=== PATIENT | female | born 1955 | race Caucasian/White ===

== ENCOUNTER 2017-04-29 10:30 | Inpatient (IN) | payer MEDICAID ==
[~2017-04-29] VITALS: Ht 167.6 cm; Wt 133.4 kg
[2017-04-29] MEDS ORDERED: SODIUM CHLORIDE 0.9% 1,000 ML IV ONE (11:01)
[2017-04-29] MEDS ORDERED: GABA300C PO (11:08)
[2017-04-29] MEDS ORDERED: LISI-167 PO (11:08)
[2017-04-29] MEDS ORDERED: FLUT10.6 INH (11:08)
[2017-04-29] MEDS ORDERED: FURO-93 PO (11:08)
[2017-04-29] MEDS ORDERED: ALBUTEROL/IPRATROPIUM 2.5MG/0.5MG, 3 ML NPPB SCH (11:30)
[2017-04-29 11:42] LABS: HEMATOCRIT 40.8 % (34.6-47.8); HEMOGLOBIN 13.1 g/dL (11.7-16.4); WHITE BLOOD COUNT 9.5 x10^3/uL (3.4-10)
[2017-04-29 11:55] LABS: BLOOD UREA NITROGEN 8 mg/dL (7-18)
[2017-04-29 11:58] LABS: IS PT STATUS REG ER OR PRE ER? YES
[2017-04-29] MEDS ORDERED: NITROGLYCERIN OINT 2%, 1GM TP ONE ×2 (13:00→13:02)
[2017-04-29] MEDS ORDERED: FUROSEMIDE 40 MG/4 ML IVPush ONE (13:00)
[2017-04-29] MEDS ORDERED: FUROSEMIDE 40 MG/4 ML ONE (13:02)
[2017-04-29] MEDS ORDERED: POTASSIUM CHLORIDE 20 MEQ TAB.ER.PRT ONE (14:19)
[2017-04-29 14:28] VITALS: BP 152/74
[2017-04-29] MEDS ORDERED: POTASSIUM CHLORIDE 20 MEQ TAB.ER.PRT PO ONE (14:30)
[2017-04-29] MEDS ORDERED: METH500T97 PO (15:44)
[2017-04-29] MEDS ORDERED: LISI1TAB3 PO (15:44)
[2017-04-29] MEDS ORDERED: IPRA4AER INH (15:44)
[2017-04-29] MEDS ORDERED: FLUT12AE INH (15:44)
[2017-04-29] MEDS ORDERED: ALBU6.7H INH (15:44)
[2017-04-29] MEDS ORDERED: ONDANSETRON ODT 4 MG PO PRN (16:00)
[2017-04-29] MEDS ORDERED: PNEUMOCOCCAL 23 VACCINE IM-VACC ONE (16:00)
[2017-04-29] MEDS ORDERED: ONDANSETRON 2MG/ML, 2ML IVPush PRN (16:00)
[2017-04-29] MEDS ORDERED: POLYETHYLENE GLYCOL 17 GM PACKET PO PRN (16:00)
[2017-04-29] MEDS ORDERED: ACETAMINOPHEN 325 MG TABLET PO PRN (16:00)
[2017-04-29] MEDS ORDERED: DOCUSATE 100 MG CAPSULE PO PRN (16:00)
[2017-04-29] MEDS ORDERED: LABETALOL 5MG/ML, 20ML IVPush PRN (16:00)
[2017-04-29] MEDS ORDERED: BISACODYL 10 MG SUPP PR PRN (16:00)
[2017-04-29] MEDS: ENOXAPARIN 40 MG/0.4 ML SQ SCH (16:53)
[2017-04-29] MEDS ORDERED: ALBUTEROL/IPRATROPIUM 2.5MG/0.5MG, 3 ML NPPB PRN (17:30)
[2017-04-29] MEDS: ALBUTEROL/IPRATROPIUM 2.5MG/0.5MG, 3 ML NPPB SCH (17:43)
[2017-04-29] MEDS: GABAPENTIN 300 MG CAPSULE PO SCH ×2 (17:52→21:24)
[2017-04-29] MEDS: methylPREDNISolone SOD SUCC 125 MG/2 ML IVPush SCH (18:20)
[2017-04-29 21:19] VITALS: BP 148/87
[2017-04-29] MEDS: METHOCARBAMOL 500 MG TABLET PO SCH (21:24)
[2017-04-30 00:46] VITALS: BP 141/80
[2017-04-30] MEDS: methylPREDNISolone SOD SUCC 125 MG/2 ML IVPush SCH ×4 (00:49→17:09)
[2017-04-30 05:02] LABS: HEMATOCRIT 43.6 % (34.6-47.8); HEMOGLOBIN 14.1 g/dL (11.7-16.4); WHITE BLOOD COUNT 7.8 x10^3/uL (3.4-10)
[2017-04-30 05:13] LABS: ASPARTATE AMINO TRANSFERASE 23 U/L (15-37); BLOOD UREA NITROGEN 14 mg/dL (7-18)
[2017-04-30] MEDS: ALBUTEROL/IPRATROPIUM 2.5MG/0.5MG, 3 ML NPPB SCH ×4 (05:14→20:00)
[2017-04-30 09:02] VITALS: BP 132/83
[2017-04-30] MEDS: GABAPENTIN 300 MG CAPSULE PO SCH ×3 (09:30→21:49)
[2017-04-30] MEDS: METHOCARBAMOL 500 MG TABLET PO SCH ×2 (09:30→21:49)
[2017-04-30] MEDS: FUROSEMIDE 40 MG/4 ML IV SCH (09:31)
[2017-04-30] MEDS: DOXYCYCLINE 100MG TABLET PO SCH ×2 (09:37→21:49)
[2017-04-30] MEDS ORDERED: ALBUTEROL/IPRATROPIUM 2.5MG/0.5MG, 3 ML ONE ×2 (10:05→13:19)
[2017-04-30 13:37] VITALS: BP 150/83
[2017-04-30] MEDS: ENOXAPARIN 40 MG/0.4 ML SQ SCH (17:08)
[2017-04-30 18:50] VITALS: BP 115/70
[2017-05-01] MEDS: methylPREDNISolone SOD SUCC 125 MG/2 ML IVPush SCH ×2 (00:22→06:20)
[2017-05-01] MEDS: morphine SULFATE 10 MG/ML, 1ML IVPush PRN (00:30)
[2017-05-01 00:41] VITALS: BP 132/77
[2017-05-01 06:39] VITALS: BP 144/83
[2017-05-01] MEDS: ALBUTEROL/IPRATROPIUM 2.5MG/0.5MG, 3 ML NPPB SCH ×4 (07:00→20:00)
[2017-05-01] MEDS: GABAPENTIN 300 MG CAPSULE PO SCH ×3 (09:35→20:42)
[2017-05-01] MEDS: DOXYCYCLINE 100MG TABLET PO SCH ×2 (09:35→20:42)
[2017-05-01] MEDS: METHOCARBAMOL 500 MG TABLET PO SCH ×2 (09:35→20:42)
[2017-05-01] MEDS: FUROSEMIDE 40 MG/4 ML IV SCH (09:35)
[2017-05-01 11:47] VITALS: BP 140/84
[2017-05-01] MEDS: LISINOPRIL 10 MG TABLET PO SCH (11:49)
[2017-05-01] MEDS: HYDROCHLOROTHIAZIDE 12.5 MG CAPSULE PO SCH (11:49)
[2017-05-01] MEDS: GUAIFENESIN ER 600 MG TABLET PO SCH ×2 (11:49→21:00)
[2017-05-01 14:44] VITALS: BP 132/71
[2017-05-01] MEDS: ENOXAPARIN 40 MG/0.4 ML SQ SCH (16:13)
[2017-05-01 20:00] VITALS: BP 126/70
[2017-05-02] MEDS: DIPHENHYDRAMINE 25 MG CAPSULE PO PRN ×2 (00:21→21:31)
[2017-05-02 02:00] VITALS: BP 146/80
[2017-05-02] MEDS ORDERED: ALBUTEROL/IPRATROPIUM 2.5MG/0.5MG, 3 ML ONE ×2 (06:35→10:28)
[2017-05-02] MEDS: ALBUTEROL/IPRATROPIUM 2.5MG/0.5MG, 3 ML NPPB SCH ×4 (07:19→20:00)
[2017-05-02 08:07] VITALS: BP 144/83
[2017-05-02] MEDS: GABAPENTIN 300 MG CAPSULE PO SCH ×3 (08:46→20:16)
[2017-05-02] MEDS: LISINOPRIL 10 MG TABLET PO SCH (08:46)
[2017-05-02] MEDS: GUAIFENESIN ER 600 MG TABLET PO SCH ×2 (08:46→20:16)
[2017-05-02] MEDS: METHOCARBAMOL 500 MG TABLET PO SCH ×2 (08:46→20:16)
[2017-05-02] MEDS: DOXYCYCLINE 100MG TABLET PO SCH ×2 (08:46→20:16)
[2017-05-02] MEDS: HYDROCHLOROTHIAZIDE 12.5 MG CAPSULE PO SCH (08:47)
[2017-05-02 15:12] VITALS: BP 151/91
[2017-05-02] MEDS: ENOXAPARIN 40 MG/0.4 ML SQ SCH ×2 (16:00→16:51)
[2017-05-02 20:13] VITALS: BP 153/97
[2017-05-03 02:45] VITALS: BP 146/84
[2017-05-03 06:27] LABS: HEMATOCRIT 46.1 % (34.6-47.8); HEMOGLOBIN 14.7 g/dL (11.7-16.4); WHITE BLOOD COUNT 8.5 x10^3/uL (3.4-10)
[2017-05-03 07:23] VITALS: BP 142/80
[2017-05-03] MEDS: ALBUTEROL/IPRATROPIUM 2.5MG/0.5MG, 3 ML NPPB SCH ×4 (08:28→20:00)
[2017-05-03] MEDS: LISINOPRIL 10 MG TABLET PO SCH (09:47)
[2017-05-03] MEDS: DOXYCYCLINE 100MG TABLET PO SCH ×2 (09:47→20:46)
[2017-05-03] MEDS: METHOCARBAMOL 500 MG TABLET PO SCH ×2 (09:47→20:46)
[2017-05-03] MEDS: GUAIFENESIN ER 600 MG TABLET PO SCH ×2 (09:48→20:46)
[2017-05-03] MEDS: HYDROCHLOROTHIAZIDE 12.5 MG CAPSULE PO SCH (09:48)
[2017-05-03] MEDS: GABAPENTIN 300 MG CAPSULE PO SCH ×3 (09:48→20:46)
[2017-05-03] MEDS: NICOTINE 14MG/24 HR PATCH.TD24 TD SCH (09:49)
[2017-05-03] MEDS ORDERED: maalox/diphenh/lido/sucralfate 5 ML PO PRN (11:00)
[2017-05-03 13:16] VITALS: BP 146/81
[2017-05-03] MEDS: ENOXAPARIN 40 MG/0.4 ML SQ SCH ×3 (15:16→16:00)
[2017-05-03] MEDS: morphine SULFATE 10 MG/ML, 1ML IVPush PRN (17:16)
[2017-05-03 19:10] VITALS: BP 135/80
[2017-05-04] MEDS: DIPHENHYDRAMINE 25 MG CAPSULE PO PRN (00:42)
[2017-05-04 02:00] VITALS: BP 139/76
[2017-05-04] MEDS: morphine SULFATE 10 MG/ML, 1ML IVPush PRN ×3 (04:00→20:24)
[2017-05-04] MEDS: ALBUTEROL/IPRATROPIUM 2.5MG/0.5MG, 3 ML NPPB SCH ×4 (07:03→19:40)
[2017-05-04 07:56] VITALS: BP 134/80
[2017-05-04] MEDS: GUAIFENESIN ER 600 MG TABLET PO SCH ×2 (08:38→20:25)
[2017-05-04] MEDS: DOXYCYCLINE 100MG TABLET PO SCH ×2 (08:39→20:25)
[2017-05-04] MEDS: METHOCARBAMOL 500 MG TABLET PO SCH ×2 (08:39→20:25)
[2017-05-04] MEDS: HYDROCHLOROTHIAZIDE 12.5 MG CAPSULE PO SCH (08:39)
[2017-05-04] MEDS: LISINOPRIL 10 MG TABLET PO SCH (08:39)
[2017-05-04] MEDS: GABAPENTIN 300 MG CAPSULE PO SCH ×3 (08:39→20:25)
[2017-05-04] MEDS: NICOTINE 14MG/24 HR PATCH.TD24 TD SCH (08:40)
[2017-05-04 12:25] VITALS: BP 158/106
[2017-05-04] MEDS ORDERED: MORPHINE SULFATE 4 MG/ML, 1ML ONE (13:04)
[2017-05-04] MEDS: ENOXAPARIN 40 MG/0.4 ML SQ SCH ×2 (15:28→15:29)
[2017-05-04 18:30] VITALS: BP 122/59
[2017-05-05] MEDS: morphine SULFATE 10 MG/ML, 1ML IVPush PRN ×2 (01:20→12:15)
[2017-05-05 01:48] VITALS: BP 171/112
[2017-05-05] MEDS ORDERED: hydrALAzine 20 MG/ML, 1ML IV PRN (02:00)
[2017-05-05 03:28] VITALS: BP_SYST 152; BP_SYST 153; BP_DIAS 100; BP_DIAS 95
[2017-05-05] MEDS: ALBUTEROL/IPRATROPIUM 2.5MG/0.5MG, 3 ML NPPB SCH ×2 (07:46→11:55)
[2017-05-05 08:55] VITALS: BP 149/92
[2017-05-05] MEDS: DOXYCYCLINE 100MG TABLET PO SCH (09:53)
[2017-05-05] MEDS: NICOTINE 14MG/24 HR PATCH.TD24 TD SCH (09:53)
[2017-05-05] MEDS: HYDROCHLOROTHIAZIDE 12.5 MG CAPSULE PO SCH (09:53)
[2017-05-05] MEDS: METHOCARBAMOL 500 MG TABLET PO SCH (09:54)
[2017-05-05] MEDS: GABAPENTIN 300 MG CAPSULE PO SCH (09:54)
[2017-05-05] MEDS: LISINOPRIL 10 MG TABLET PO SCH (09:54)
[2017-05-05] MEDS: GUAIFENESIN ER 600 MG TABLET PO SCH (09:54)
[2017-05-05 13:10] VITALS: BP 131/88
[2017-05-05] MEDS ORDERED: PRED10TA14 PO (14:23)
[2017-05-05] MEDS ORDERED: DOXY100T PO (14:24)
== END 2017-05-05 14:33 | disposition home or self-care (01) | DRG 189 ==
LOC: ED 11:10 → EDIP 12:45 → 5SO 14:19 → 4WST 05-01 18:40 → DCLOUNGE 05-05 14:18
PROVIDERS: ADMIT Internal Medicine; ATTEND Internal Medicine
DX: J96.01 Acute respiratory failure with hypoxia (principal); I50.30 Unspecified diastolic (congestive) heart failure; I11.0 Hypertensive heart disease with heart failure; Z99.81 Dependence on supplemental oxygen; J44.1 Chronic obstructive pulmonary disease with (acute) exacerbation; J98.11 Atelectasis; Z68.42 Body mass index [BMI] 45.0-49.9, adult; E66.9 Obesity, unspecified; G62.9 Polyneuropathy, unspecified; E87.6 Hypokalemia; G89.29 Other chronic pain; I87.8 Other specified disorders of veins
CPT/HCPCS: 36415; 71010; 74000; 80048; 80053; 82040; 83735; 83880; 84100; 84484; 85025; 90732; 93005; 93306; 94640; 96361; 96374; J1650; J1940; J7620; J0360; J2270; J2930; J7030; J7512; Q0163